=== PATIENT | male | born 1990 | race African-American/Black ===

== ENCOUNTER 2018-01-03 20:33 | Emergency (ER) | payer SELFPAY ==
[2018-01-03 20:51] VITALS: BP 148/92; PULSE 113; TEMP 98.7; BMI 23.7
--- NOTE | 2018-01-03 21:25 | PDOC ---
History of Present Illness - General Chief Complaint: Pain Stated Complaint: INJURY Time Seen by Provider: 01/03/18 21:19 History Source: Patient Exam Limitations: No Limitations - History of Present Illness Initial Comments: CHIEF COMPLAINT: 27 y/o male with no significant PMH c/o left ankle sprain. HISTORY OF PRESENT ILLNESS: Patient states he stepped on uneven pavement last night and twisted his ankle in an inversion fashion. He states the pain was much worse today so he decided to come in. He can walk on the foot but with pain. Vital signs on arrival are notable for pulse of 113. REVIEW OF SYSTEMS: GENERAL/CONSTITUTIONAL: No fever/chills. No weakness. No weight change. MUSCULOSKELETAL: +left ankle pain. No neck or back pain. SKIN: No rash or easy bruising. NEUROLOGIC: No headache, vertigo, loss of consciousness, or loss of sensation. PHYSICAL EXAM: VITAL_SIGNS: within normal limits GENERAL_APPEARANCE: alert, cooperative, no obvious discomfort. Normal gait. MENTAL_STATUS: speech clear, oriented X 3, responds appropriately to questions. NEURO: motor intact and sensory intact in injured extremity. EXTREMITIES: 2+ dorsalis pedis pulse in injured extremity. Left ankle with minimal swelling and TTP on anterior ankle mortisse. No crepitus or deformities noted. Full ROM of left ankle. SKIN: warm, dry, good color. Past History - Past Medical History Allergies/Adverse Reactions: Allergies Allergy/AdvReac Type Severity Reaction Status Date / Time No Known Allergies Allergy Verified 01/03/18 20:48 Home Medications: Ambulatory Orders NK [No Known Home Medication] 01/03/18 COPD: No Other medical history: Pt denies - Suicide/Smoking/Psychosocial Hx Smoking History: Never smoked Have you smoked in the past 12 months: No Information on smoking cessation initiated: No Hx Alcohol Use: No Drug/Substance Use Hx: Yes (Marijuana) Substance Use Type: Marijuana *Physical Exam - Vital Signs Last Vital Signs Temp Pulse Resp BP Pulse Ox 98.7 F 113 H 20 148/92 97 01/03/18 20:48 01/03/18 20:48 01/03/18 20:48 01/03/18 20:48 01/03/18 20:48 ED Treatment Course - RADIOLOGY Radiology Studies Ordered: Category Date Time Status ANKLE & FOOT-LEFT* [RAD] Stat Radiology 03/10/18 21:13 Ordered Medical Decision Making - Medical Decision Making A/P: 27 y/o male with left ankle sprain. Plan is as follows: 1. Left ankle xray ankle xray IMPRESSION: (wet read) No fracture Provided the patient with an ERNA bandage for his ankle. Suggested he follow RICE instructions, take Motrin for pain with food and follow up with Dr. Mcgrath in 2 weeks if no improvement. The patient verbalizes understanding of all instructions, has no further questions and is awaiting discharge. *DC/Admit/Observation/Transfer Diagnosis at time of Disposition: Ankle sprain Qualifiers: Encounter type: initial encounter Involved ligament of ankle: unspecified ligament Laterality: left Qualified Code(s): S93.402A - Sprain of unspecified ligament of left ankle, initial encounter - Discharge Dispostion Disposition: HOME Condition at time of disposition: Good - Referrals Referrals: Keenan Mcgrath MD [Staff Physician] - - Patient Instructions Printed Discharge Instructions: DI for Ankle Sprain, How To Perform RICE (Rest , Ice, Compress, Elevate) Additional Instructions: Discharge Instructions: -You sprained your ankle -Use ERNA bandage as needed for comfort -Follow RICE instructions -Take Motrin if needed with food for pain -Follow up with Dr. Mcgrath in 2 weeks if no improvement - Post Discharge Activity
== END 2018-01-03 21:53 | disposition home or self-care (01) ==
LOC: JERFT 20:33
DX: S93.402A Sprain of unspecified ligament of left ankle, initial encounter (principal); X50.1XXA Overexertion from prolonged static or awkward postures, initial encounter; Y93.89 Activity, other specified; Y92.480 Sidewalk as the place of occurrence of the external cause; Y99.8 Other external cause status
CPT/HCPCS: 73610-TC-LT-FY; 73630-TC-LT; 99281-25